=== PATIENT | female | born 1975 | race Caucasian/White ===

== ENCOUNTER 2021-02-23 11:01 | Observation (INO) | payer SELFPAY ==
[2021-02-23 11:51] LABS: #Eosinphils 0.1 thou/uL (0.0-0.7); #Lymphocytes 1.5 thou/uL (1.20-3.40); #Monocytes 0.8 thou/uL (0.11-0.59); #Neutrophils 4.8 thou/uL (1.40-6.50); %Basophils 0.6 % (0.0-1.0); %Eosinophils 1.5 % (0.0-10.0); %Lymphocytes 20.8 % (21.0-51.0); %Monocytes 10.7 % (0.0-10.0); %Neutrophils 66.5 % (42.0-75.0); Hemoglobin 14.3 g/dL (12.0-16.0); Mean Corpuscular HGB CONC 35.1 g/dL (32.0-36.0); Mean Corpuscular Hemoglobin 33.5 pg (27.0-31.0); Mean Corpuscular Volume 95.5 fL (78.0-98.0); Platelet Count 378 thou/uL (130-400); RBC Distribution Width 10.7 % (11.5-14.5); Red Blood Cell (RBC) Count 4.26 mill/uL (4.20-5.40); White Blood Cell (WBC) Count 7.2 thou/uL (4.8-10.8)
[2021-02-23 11:58] LABS: BHCG - Serum Negative (NEGATIVE); Pregs Control Background? CLEAR/WHITE (CLR/WHITE); Pregs Control Bar Appear? YES (CONTROL BAR)
[2021-02-23 12:34] LABS: Anion Gap 16 mmol/L (10-20); BUN (Urea Nitrogen) 13 mg/dL (7.0-18.7); Calc. Creatinine Clearance 0 mL/min (70-130); Carbon Dioxide 22 mmol/L (22-29); Chloride 106 mmol/L (98-107); Potassium 4.5 mmol/L (3.5-5.1); Sodium 139 mmol/L (136-145)
[2021-02-23 12:35] LABS: ALT (SGPT) 18 U/L (8-55); AST (SGOT) 26 U/L (5-34); Albumin 3.7 g/dL (3.5-5.0); Alkaline Phosphatase 63 U/L (40-110); Bilirubin, Total 0.7 mg/dL (0.2-1.2); CK (CPK) 79 U/L (29-168); Calcium 9.2 mg/dL (7.8-10.44); Globulin 3.2 g/dL (2.4-3.5); Glucose 103 mg/dL (70-105); Protein, Total 6.9 g/dL (6.0-8.3)
[2021-02-23] MEDS ORDERED: Senokot S 8.6-50 MG TAB PO PRN (14:26)
[2021-02-23] MEDS ORDERED: Acetaminophen 325 MG TAB PO PRN (14:26)
[2021-02-23] MEDS ORDERED: Sodium Chloride 0.9% 1,000 ML IV SCH (14:30)
[2021-02-23] MEDS ORDERED: Aspirin Chewable 81 MG TAB ONE (14:49)
[2021-02-23] MEDS ORDERED: Famotidine 20 MG TAB PO SCH (21:00)
[2021-02-23] MEDS ORDERED: Meclizine HCl 25 MG TAB PO SCH (22:00)
[2021-02-24] MEDS ORDERED: Aspirin 325 mg Enteric Coated Tablet PO SCH (09:00)
[2021-02-24] MEDS ORDERED: Enoxaparin Sodium 40 MG/0.4 ML SYRINGE SC SCH (09:00)
== END 2021-02-23 15:02 | disposition left against medical advice (07) ==
LOC: ERS 11:01 → ERHOLD 14:00
PROVIDERS: ADMIT Internal Medicine; ATTEND Internal Medicine
DX: R42 Dizziness and giddiness (principal); Z88.0 Allergy status to penicillin
CPT/HCPCS: 36415; 70450; 71045; 80053; 82550; 83735; 84484; 84703; 85025; 93005

== ENCOUNTER 2021-02-25 09:51 | Inpatient (IN) | payer SELFPAY ==
[~2021-02-25 09:51] MED LIST: Magnevist 469MG/ML 20 ML VIAL ONE
[2021-02-25] MEDS ORDERED: Aspirin Chewable 81 MG TAB ONE (10:43)
[2021-02-25 10:58] LABS: #Eosinphils 0.1 thou/uL (0.0-0.7); #Lymphocytes 1.1 thou/uL (1.20-3.40); #Monocytes 0.7 thou/uL (0.11-0.59); #Neutrophils 6.4 thou/uL (1.40-6.50); %Basophils 0.3 % (0.0-1.0); %Eosinophils 1.5 % (0.0-10.0); %Lymphocytes 13.6 % (21.0-51.0); %Monocytes 8.3 % (0.0-10.0); %Neutrophils 76.3 % (42.0-75.0); Hemoglobin 15.5 g/dL (12.0-16.0); Mean Corpuscular HGB CONC 33.3 g/dL (32.0-36.0); Mean Corpuscular Hemoglobin 32.4 pg (27.0-31.0); Mean Corpuscular Volume 97.3 fL (78.0-98.0); Mean Platelet Volume 6.3 fL (7.4-10.4); Platelet Count 394 thou/uL (130-400); RBC Distribution Width 10.7 % (11.5-14.5); Red Blood Cell (RBC) Count 4.78 mill/uL (4.20-5.40); White Blood Cell (WBC) Count 8.4 thou/uL (4.8-10.8)
[2021-02-25 11:12] LABS: ALT (SGPT) 18 U/L (8-55); AST (SGOT) 20 U/L (5-34); Alkaline Phosphatase 75 U/L (40-110); Anion Gap 12 mmol/L (10-20); BUN (Urea Nitrogen) 13 mg/dL (7.0-18.7); Bilirubin, Total 0.6 mg/dL (0.2-1.2); Calc. Creatinine Clearance 0 mL/min (70-130); Calcium 9.4 mg/dL (7.8-10.44); Carbon Dioxide 23 mmol/L (22-29); Chloride 107 mmol/L (98-107); Globulin 3.3 g/dL (2.4-3.5); Glucose 105 mg/dL (70-105); Potassium 4.1 mmol/L (3.5-5.1); Protein, Total 7.3 g/dL (6.0-8.3); Sodium 138 mmol/L (136-145)
[2021-02-25 11:15] LABS: INR-International Normal Ratio 0.9; PTT 25.2 sec (22.9-36.1); Prothrombin Time 12.6 sec (12.0-14.7)
[2021-02-25 20:19] VITALS: BMI 26.7
[2021-02-25 21:03] LABS: SARS-CoV-2 PCR by NAA Not Detected (NotDetected)
[2021-02-25] MEDS ORDERED: Nicotine 14 MG PATCH TD SCH (22:00)
[2021-02-25] MEDS ORDERED: Melatonin 3 MG TAB PO SCH (22:30)
[2021-02-26 05:57] LABS: Hemoglobin A1c 4.7 % (4.0-6.0)
[2021-02-26 06:14] LABS: Cardiac Risk 2.8 (Less than 4.5)
[2021-02-26] MEDS ORDERED: Aspirin 81 mg Enteric Coated Tablet PO SCH (09:00)
[2021-02-26 10:57] LABS: Medtox Reader # READER 1
[2021-02-26 10:58] LABS: Methamphetamine Detected (NotDetected)
[2021-02-26 10:59] LABS: Amphetamine Detected (NotDetected); Barbiturates Screen Not Detected (NotDetected); Benzodiazepine Screen Not Detected (NotDetected); Cocaine Metabolite Screen Not Detected (NotDetected); Medtox Control Line Valid? VALID (VALID); Methadone Not Detected (NotDetected); Opiate Screen Not Detected (NotDetected); Oxycodone Screen Not Detected (NotDetected); Phencyclidine (PCP) Not Detected (NotDetected); THC/Cannabinoid Screen Not Detected (NotDetected); Tricyclic Screen Not Detected (NotDetected)
[2021-02-26 15:46] VITALS: BP 129/71; TEMP 97.9
== END 2021-02-26 16:50 | disposition home or self-care (01) | DRG 93 ==
LOC: ERS 09:51 → OBSVTOIN 12:35 → ERHOLD 12:35 → 2SE 19:37
PROVIDERS: ADMIT Internal Medicine; ATTEND Internal Medicine
DX: R20.2 Paresthesia of skin (principal); G65.2 Sequelae of toxic polyneuropathy; F41.9 Anxiety disorder, unspecified; F32.9 Major depressive disorder, single episode, unspecified; F17.210 Nicotine dependence, cigarettes, uncomplicated; F15.10 Other stimulant abuse, uncomplicated; R27.0 Ataxia, unspecified; H53.2 Diplopia; Z90.49 Acquired absence of other specified parts of digestive tract; Z88.0 Allergy status to penicillin
CPT/HCPCS: 36415; 70544; 70549; 70551; 80053; 80061; 80306; 83036; 83880; 84443; 84484; 85025; 85610; 85730; 87635; 93005; 95712; 95819; 95957; A9579; G0378; U0003; U0005

== ENCOUNTER 2021-03-13 16:41 | Inpatient (IN) | payer SELFPAY ==
[2021-03-13 19:20] LABS: #Eosinphils 0.3 thou/uL (0.0-0.7); #Lymphocytes 1.7 thou/uL (1.20-3.40); #Neutrophils 4.5 thou/uL (1.40-6.50); %Basophils 0.3 % (0.0-1.0); %Eosinophils 3.6 % (0.0-10.0); %Lymphocytes 22.8 % (21.0-51.0); %Monocytes 13.4 % (0.0-10.0); %Neutrophils 59.9 % (42.0-75.0); Hemoglobin 13.6 g/dL (12.0-16.0); Mean Corpuscular HGB CONC 34.5 g/dL (32.0-36.0); Mean Corpuscular Hemoglobin 33.7 pg (27.0-31.0); Mean Corpuscular Volume 97.6 fL (78.0-98.0); Platelet Count 408 thou/uL (130-400); RBC Distribution Width 10.8 % (11.5-14.5); Red Blood Cell (RBC) Count 4.04 mill/uL (4.20-5.40); White Blood Cell (WBC) Count 7.5 thou/uL (4.8-10.8)
[2021-03-13 19:27] LABS: BHCG - Serum Negative (NEGATIVE); Pregs Control Background? CLEAR/WHITE (CLR/WHITE); Pregs Control Bar Appear? YES (CONTROL BAR)
[2021-03-13 19:41] LABS: ALT (SGPT) 24 U/L (8-55); AST (SGOT) 22 U/L (5-34); Albumin 3.6 g/dL (3.5-5.0); Alkaline Phosphatase 80 U/L (40-110); Anion Gap 12 mmol/L (10-20); BUN (Urea Nitrogen) 12 mg/dL (7.0-18.7); Bilirubin, Total 0.4 mg/dL (0.2-1.2); Calc. Creatinine Clearance 0 mL/min (70-130); Calcium 9.1 mg/dL (7.8-10.44); Carbon Dioxide 29 mmol/L (22-29); Chloride 104 mmol/L (98-107); Globulin 2.8 g/dL (2.4-3.5); Glucose 117 mg/dL (70-105); Potassium 3.6 mmol/L (3.5-5.1); Protein, Total 6.4 g/dL (6.0-8.3); Sodium 141 mmol/L (136-145)
[2021-03-13] MEDS ORDERED: Vancomycin 1 GM/200 ML BAG ONE (19:45)
[2021-03-13] MEDS ORDERED: Cefepime 2 GM VIAL ONE (19:45)
[2021-03-13] MEDS ORDERED: Ondansetron PF 4 MG/2 ML Vial IVP PRN (22:37)
[2021-03-13] MEDS ORDERED: Ondansetron ODT 4 MG TAB PO PRN (22:37)
[2021-03-13 23:19] VITALS: BMI 28.0
[2021-03-13] MEDS: Clindamycin/D5W 600 MG in Premix Bag 1 BAG IVPB SCH (23:25)
[2021-03-14 02:25] LABS: SARS-CoV-2 NAA Rapid Test Not Detected (NotDetected)
[2021-03-14] MEDS: Clindamycin/D5W 600 MG in Premix Bag 1 BAG IVPB SCH ×2 (05:06→11:32)
[2021-03-14 06:17] LABS: #Basophils 0.1 thou/uL (0.0-0.2); #Eosinphils 0.3 thou/uL (0.0-0.7); #Lymphocytes 1.6 thou/uL (1.20-3.40); #Monocytes 0.9 thou/uL (0.11-0.59); #Neutrophils 4.5 thou/uL (1.40-6.50); %Basophils 0.8 % (0.0-1.0); %Eosinophils 4.5 % (0.0-10.0); %Lymphocytes 22.3 % (21.0-51.0); %Monocytes 11.8 % (0.0-10.0); %Neutrophils 60.6 % (42.0-75.0); Mean Corpuscular HGB CONC 35.2 g/dL (32.0-36.0); Mean Corpuscular Hemoglobin 34.3 pg (27.0-31.0); Mean Corpuscular Volume 97.4 fL (78.0-98.0); Platelet Count 378 thou/uL (130-400); RBC Distribution Width 10.9 % (11.5-14.5); Red Blood Cell (RBC) Count 3.79 mill/uL (4.20-5.40); White Blood Cell (WBC) Count 7.4 thou/uL (4.8-10.8)
[2021-03-14 06:39] LABS: Anion Gap 9 mmol/L (10-20); BUN (Urea Nitrogen) 13 mg/dL (7.0-18.7); Calc. Creatinine Clearance 127 mL/min (70-130); Calcium 8.7 mg/dL (7.8-10.44); Carbon Dioxide 28 mmol/L (22-29); Chloride 107 mmol/L (98-107); Glucose 105 mg/dL (70-105); Potassium 3.5 mmol/L (3.5-5.1); Sodium 140 mmol/L (136-145)
[2021-03-14] MEDS: Cefepime 2 GM in Sodium Chloride 0.9% 100 ML IVPB SCH ×2 (08:34→19:15)
[2021-03-14] MEDS: Enoxaparin Sodium 40 MG/0.4 ML SYRINGE SC SCH (08:41)
[2021-03-14] MEDS: Vancomycin HCl 1.5 GM in Sodium Chloride 0.9% 250 ML 300 ML IVPB SCH ×3 (10:58→20:26)
[2021-03-14] MEDS: Acetaminophen 325 MG TAB PO PRN (19:15)
[2021-03-14 22:21] LABS: Amphetamine Detected (NotDetected); Barbiturates Screen Not Detected (NotDetected); Benzodiazepine Screen Not Detected (NotDetected); Cocaine Metabolite Screen Not Detected (NotDetected); Medtox Control Line Valid? VALID (VALID); Medtox Reader # READER 1; Methadone Not Detected (NotDetected); Methamphetamine Detected (NotDetected); Opiate Screen Not Detected (NotDetected); Oxycodone Screen Not Detected (NotDetected); Phencyclidine (PCP) Not Detected (NotDetected); THC/Cannabinoid Screen Not Detected (NotDetected); Tricyclic Screen Not Detected (NotDetected)
[2021-03-15] MEDS: Acetaminophen 325 MG TAB PO PRN (08:01)
[2021-03-15] MEDS: Enoxaparin Sodium 40 MG/0.4 ML SYRINGE SC SCH (08:01)
[2021-03-15] MEDS: Cefepime 2 GM in Sodium Chloride 0.9% 100 ML IVPB SCH ×2 (08:01→20:03)
[2021-03-15] MEDS: Vancomycin HCl 1.5 GM in Sodium Chloride 0.9% 250 ML 300 ML IVPB SCH (10:23)
[2021-03-15] MEDS: risperiDONE 1 MG TAB PO SCH (20:04)
[2021-03-15 21:03] LABS: Vancomycin, Trough 10.1 ug/mL
[2021-03-16] MEDS: Vancomycin HCl 1.5 GM in Sodium Chloride 0.9% 250 ML 300 ML IVPB SCH (00:11)
[2021-03-16] MEDS: Acetaminophen 325 MG TAB PO PRN ×2 (04:23→20:35)
[2021-03-16 06:49] LABS: #Basophils 0.1 thou/uL (0.0-0.2); #Eosinphils 0.3 thou/uL (0.0-0.7); #Lymphocytes 1.6 thou/uL (1.20-3.40); %Basophils 0.7 % (0.0-1.0); %Eosinophils 3.2 % (0.0-10.0); %Monocytes 12.9 % (0.0-10.0); %Neutrophils 63.2 % (42.0-75.0); Hemoglobin 12.7 g/dL (12.0-16.0); Mean Corpuscular HGB CONC 32.8 g/dL (32.0-36.0); Mean Corpuscular Hemoglobin 32.2 pg (27.0-31.0); Mean Corpuscular Volume 98.4 fL (78.0-98.0); Mean Platelet Volume 6.2 fL (7.4-10.4); Platelet Count 349 thou/uL (130-400); RBC Distribution Width 11.2 % (11.5-14.5); Red Blood Cell (RBC) Count 3.93 mill/uL (4.20-5.40); White Blood Cell (WBC) Count 7.9 thou/uL (4.8-10.8)
[2021-03-16 07:04] LABS: Anion Gap 10 mmol/L (10-20); BUN (Urea Nitrogen) 8 mg/dL (7.0-18.7); Calc. Creatinine Clearance 160 mL/min (70-130); Calcium 8.2 mg/dL (7.8-10.44); Carbon Dioxide 23 mmol/L (22-29); Chloride 112 mmol/L (98-107); Glucose 110 mg/dL (70-105); Potassium 3.7 mmol/L (3.5-5.1); Sodium 141 mmol/L (136-145)
[2021-03-16] MEDS: Enoxaparin Sodium 40 MG/0.4 ML SYRINGE SC SCH (08:12)
[2021-03-16] MEDS: Cefepime 2 GM in Sodium Chloride 0.9% 100 ML IVPB SCH ×2 (08:13→20:23)
[2021-03-16] MEDS ORDERED: Triple Antibiotic Oint 1 GM Packet TOP SCH (16:00)
[2021-03-16] MEDS: risperiDONE 1 MG TAB PO SCH (20:24)
[2021-03-17] MEDS: Enoxaparin Sodium 40 MG/0.4 ML SYRINGE SC SCH (09:44)
[2021-03-17] MEDS: Triple Antibiotic Oint 1 GM Packet TOP SCH (09:44)
[2021-03-17] MEDS: Cefepime 2 GM in Sodium Chloride 0.9% 100 ML IVPB SCH (09:55)
[2021-03-17 15:18] LABS: Vancomycin, Trough 13.7 ug/mL
[2021-03-17 16:26] VITALS: TEMP 97.9
[2021-03-17] MEDS: risperiDONE 1 MG TAB PO SCH (20:17)
[2021-03-17] MEDS: Cephalexin 250 MG CAP PO SCH (20:17)
[2021-03-18] MEDS: Triple Antibiotic Oint 1 GM Packet TOP SCH (08:27)
[2021-03-18] MEDS: Cephalexin 250 MG CAP PO SCH (08:27)
[2021-03-18] MEDS: Acetaminophen 325 MG TAB PO PRN (08:27)
[2021-03-18] MEDS: Enoxaparin Sodium 40 MG/0.4 ML SYRINGE SC SCH (08:28)
[2021-03-18 13:49] VITALS: BP 142/82
== END 2021-03-18 14:25 | disposition home or self-care (01) | DRG 603 ==
LOC: ERS 16:41 → T4-A 21:19
PROVIDERS: ADMIT Student in an Organized Health Care Education/Training Program; ATTEND Internal Medicine
DX: L03.115 Cellulitis of right lower limb (principal); F41.9 Anxiety disorder, unspecified; F32.9 Major depressive disorder, single episode, unspecified; Z20.822 Contact with and (suspected) exposure to COVID-19; F17.210 Nicotine dependence, cigarettes, uncomplicated; F15.10 Other stimulant abuse, uncomplicated; L98.9 Disorder of the skin and subcutaneous tissue, unspecified; L03.116 Cellulitis of left lower limb; B18.2 Chronic viral hepatitis C; Z90.49 Acquired absence of other specified parts of digestive tract; Z88.0 Allergy status to penicillin
CPT/HCPCS: 36415; 80048; 80053; 80202; 80306; 83605; 84703; 85025; 87040; 96365; 96367; J0692; J1650; J3370; J3490; J7030; J7050; U0002; U0005

== ENCOUNTER 2021-05-24 10:12 | Emergency (ER) | payer SELFPAY ==
[2021-05-24] MEDS ORDERED: cefTRIAXone\\ROCEPHIN 500 MG VIAL ONE (11:51)
[2021-05-24] MEDS ORDERED: Azithromycin 250 MG TAB ONE (11:51)
[2021-05-24] MEDS ORDERED: Lidocaine 1% (PF) 30 ML VIAL ONE (11:51)
[2021-05-24 12:16] LABS: Bilirubin Negative (Negative); Blood, Urine Negative (Negative); Clarity Clear (Clear); Glucose, Urine (Dipstick) Normal (Negative); Ketone, Urine Negative (Negative); Leukocyte 250 Leu/uL (Negative); Nitrite Negative (Negative); Protein, Urine (Dipstick) 10 mg/dL (Neg-Trace); Specific Gravity, Urine 1.017 (1.002-1.036); Squamous Epithelial 0-3 HPF (0-3); Urobilinogen Normal mg/dL (Less than 2); WBC/HPF Greater than 50 HPF (0-3)
[2021-05-24 12:20] LABS: Bacteria/HPF Rare-Few HPF (None Seen)
[2021-05-24 12:21] LABS: Pregnancy Test - Urine (BHCG) Negative (Negative); Pregu Control Background? CLEAR/WHITE (CLR/WHITE); Pregu Control Bar Appear? YES (CONTROL BAR); Specific Gravity 1.017 (1.002-1.036)
== END 2021-05-24 13:00 | disposition home or self-care (01) ==
LOC: ERS 10:12
DX: N39.0 Urinary tract infection, site not specified (principal); Z20.2 Contact with and (suspected) exposure to infections with a predominantly sexual mode of transmission; F17.210 Nicotine dependence, cigarettes, uncomplicated
CPT/HCPCS: 81003; 81015; 81025; 87077; 87086; 87186; 96372; 99283; J0696; J2001